=== PATIENT | female | born 1975 | race Caucasian/White ===

== ENCOUNTER 2017-08-11 08:31 | Emergency (ER) | payer BC, OTHER ==
[~2017-08-11] VITALS: Ht 162.6 cm; Wt 64.0 kg
[2017-08-11 08:35] VITALS: Ht 162.6 cm; Wt 64.0 kg
[2017-08-11] MEDS ORDERED: ACETAMINOPHEN 500 MG TAB PO STA (09:05)
--- NOTE | 2017-08-11 09:40 | RADRPT ---
PROCEDURE: XR Knee. CLINICAL INDICATION: Trauma, fall. TECHNIQUE: Left knee, three views. COMPARISON: None. FINDINGS: The bone mineralization is age appropriate. There is no acute fracture or dislocation. Osseous alignment appears maintained. There is no significant joint space narrowing. There are no significant degenerative changes. No significant joint effusion. IMPRESSION: No acute fracture or dislocation of the left knee. RPTAT: EE Sarita Yarbrough Physician Date Time Electronically viewed and signed by Sarita Yarbrough Physician on 08/11/2017 09:40 PH/
--- NOTE | 2017-08-11 09:51 | ERD ---
ER Documentation Chief Complaint Chief Complaint left leg pain x this AM sliped off stepstool HPI This is a 42-year-old female who presents the emergency department today complaining of left knee pain after slipping and falling off a tree foot tall ladder earlier today. Patient states she missed 2 steps that she was trying to go down. States she usually takes Voltaren for her plantar fasciitis. Denies any fevers or chills. States she is able to ambulate but has pain in the back of her knee pain ROS All systems reviewed and are negative except as per history of present illness. Medications Home Meds Active Scripts Acetaminophen* (Tylophen*) 500 Mg Capsule, 1 CAP PO Q6H Y for PAIN AND OR ELEVATED TEMP, #30 CAP Prov:CHELSEA THOMAS PA-C 08/11/17 Allergies Allergies: Coded Allergies: No Known Allergy (Unverified , 08/11/17) PMhx/Soc Medical and Surgical Hx: pt denies Medical Hx, pt denies Surgical Hx Hx Alcohol Use: No Hx Substance Use: No Hx Tobacco Use: No Physical Exam Vitals Vital Signs Date Time Temp Pulse Resp B/P Pulse Ox O2 Delivery O2 Flow Rate FiO2 08/11/17 08:35 98.7 90 16 134/92 99 Physical Exam Const: NAD Head: Atraumatic Eyes: Normal Conjunctiva ENT: Normal External Ears, Nose and Mouth. Neck: Full range of motion..~ No meningismus. Resp: Clear to auscultation bilaterally Cardio: Regular rate and rhythm, no murmurs Abd: Soft, non tender, non distended. Normal bowel sounds Skin: No petechiae or rashes MSK:` Left leg with no obvious deformity. No effusion. No ecchymosis. Full active range of motion of knee. Pain posterior aspect of knee. No evidence of ecchymosis or bruising. Nontender femur gastroc. Pulses 2+. Distal neurovascularly intact. Neur: Awake and alert Psych: Normal Mood and Affect Results 24 hrs Current Medications Medications (Trade) Dose Ordered Sig/Venita Route PRN Reason Start Time Stop Time Status Last Admin Dose Admin Acetaminophen (Tylenol Tab) 500 mg ONCE STAT PO 08/11/17 09:05 08/11/17 09:07 DC 08/11/17 09:10 DIAGNOSTIC IMAGING REPORT Patient: JEREMY NEWMAN : 1975 Age: 42 Sex: F MR #: [id number] DOS: 08/11/17 0000 Ordering MD: CHELSEA THOMAS PA-C Location: [facility] Room/Bed: PROCEDURE: XR Knee. CLINICAL INDICATION: Trauma, fall. TECHNIQUE: Left knee, three views. COMPARISON: None. FINDINGS: The bone mineralization is age appropriate. There is no acute fracture or dislocation. Osseous alignment appears maintained. There is no significant joint space narrowing. There are no significant degenerative changes. No significant joint effusion. IMPRESSION: No acute fracture or dislocation of the left knee. RPTAT: EE Sarita Yarbrough Physician Date Time Electronically viewed and signed by Sarita Yarbrough Physician on 08/11/2017 09:40 PH/ CC: CHELSEA THOMAS PA-C Procedures/MDM This is a 42-year-old female who presents the emergency department today complaining of left knee pain after missing 2 steps on a 3 foot ladder earlier today. Patient is complaining of pain in her knee and more so in the back of her knee. She does have full active range of motion and there does not appear to be evidence of dislocation of low suspicion for arterial injury. Has good pulses. I did offer to obtain an x-ray Per the radiology report images are unremarkable. There is no acute fracture dislocation. Her symptoms at this time appear musculoskeletal and may be related to hyperextension injury. She was given Tylenol here in the emergency department she stated that she did not want anything strong. Patient only takes 4 times at home and she is instructed to continue taking that and she may take Tylenol on top of that for which I have given her a prescription for. She was given a knee immobilizer for comfort. She is distally neurovascularly intact pre-and post knee immobilizer. Patient declined crutches to help ambulate. Given her a work note for a couple of days. At this time the patient is stable for discharge and outpatient management. Patient should follow up with their PCP in the next 1-2 days. They may return to the emergency department sooner for any persistent or worsening of symptoms. Patient understood and agreed with the plan. Departure Diagnosis: Primary Impression: Injury of left leg Encounter type: initial encounter Qualified Code: S89.92XA - Injury of left lower extremity, initial encounter Condition: CHELSEA Gloria PA-C Aug 11, 2017 09:51
[2017-08-11] MEDS ORDERED: ACET500C5 PO (09:55)
== END 2017-08-11 10:06 | disposition home or self-care (01) ==
LOC: FTE 08:31
DX: S89.92XA Unspecified injury of left lower leg, initial encounter (principal); W11.XXXA Fall on and from ladder, initial encounter; Y92.9 Unspecified place or not applicable
CPT/HCPCS: 29505; 73562; 99283; Z7610